=== PATIENT | female | born 1970 | race Caucasian/White ===

== ENCOUNTER 2017-06-30 22:44 | Emergency (ER) | payer SELFPAY, OTHER | END 2017-07-01 02:25 | disposition left against medical advice (07) | LOC: E/R 22:44 | DX: Z53.21 Procedure and treatment not carried out due to patient leaving prior to being seen by health care provider (principal) ==

== ENCOUNTER 2019-01-19 15:29 | Emergency (ER) | payer BC, OTHER | END 2019-01-19 16:40 | disposition home or self-care (01) | LOC: FTE 15:29 | DX: N90.7 Vulvar cyst (principal) | CPT/HCPCS: 99283 ==